=== PATIENT | male | born 1965 | race Two or more races ===

== ENCOUNTER 2021-12-29 12:47 | Emergency (ER) | payer MEDICAID ==
[2021-12-29] MEDS ORDERED: CLINDAMYCIN 600 MG/4 ML VL IM ONE (14:00)
[2021-12-29] MEDS ORDERED: cefTRIAXone SOD 1,000 MG VL IM ONE (14:00)
[2021-12-29 14:01] LABS: Basophils # (auto) 0 10 ^3/uL (0-0.2); Eosinophils # (auto) 0.1 10 ^3/uL (0-0.8); Hemoglobin 14.5 g/dL (13.5-17.5); Lymphocytes # (auto) 1.2 10 ^3/uL (0.4-5.4); Lymphocytes % (auto) 17.1 % (10.0-50.0); Monocytes # (auto) 0.5 10 ^3/uL (0-1.3); White Blood Cell 6.8 10^3/uL (4.4-10.8)
[2021-12-29 14:03] LABS: Basophils % (auto) 0.4 % (0.0-2.0); Eosinophils % (auto) 1.1 % (0.0-7.0); Hematocrit 44.6 % (41.0-53.0); Mean Corpuscular Hemoglobin 24.5 pg (28.0-32.0); Mean Corpuscular Hgb Conc. 32.4 g/dL (32.0-36.0); Mean Corpuscular Volume 75.5 fL (80.0-100.0); Monocytes % (auto) 7.6 % (0.0-12.0); Neutrophils % (auto) 73.8 % (37.0-80.0); Red Blood Cells 5.91 10^6/uL (4.5-5.90); Red Cell Distribution Width 12.7 % (11.8-14.3)
[2021-12-29 14:28] LABS: BUN/Creatinine Ratio 11.4; Calcium 9.3 mg/dL (8.5-10.1); Potassium 4.3 mmol/L (3.5-5.1)
[2021-12-29 14:31] LABS: Bilirubin, Total 0.3 mg/dL (0.2-1.0); Total Protein 8.2 g/dL (6.4-8.2)
[2021-12-29] MEDS ORDERED: CLIN300C8 PO (14:33)
[2021-12-29] MEDS ORDERED: LIDOCAINE 1% (LOCAL ANESTH.) PF 5ml SDV ONE (17:01)
[2021-12-29 17:31] VITALS: BP 146/84
== END 2021-12-29 17:34 | disposition home or self-care (01) ==
LOC: ER 12:47
DX: L03.115 Cellulitis of right lower limb (principal); E11.65 Type 2 diabetes mellitus with hyperglycemia; F17.210 Nicotine dependence, cigarettes, uncomplicated
CPT/HCPCS: 36415; 80053; 82962; 85025; 96372; 99284; J0696

== ENCOUNTER 2022-01-05 10:17 | Inpatient (IN) | payer MEDICAID ==
[~2022-01-05] VITALS: Ht 165.1 cm; Wt 77.6 kg
[~2022-01-05 10:17] MED LIST: CLIN300C8 PO
[2022-01-05 12:42] LABS: Eosinophils # (auto) 0.2 10 ^3/uL (0-0.8); Hemoglobin 13.8 g/dL (13.5-17.5); Monocytes # (auto) 0.4 10 ^3/uL (0-1.3); Neutrophils # (auto) 3.8 10 ^3/uL (1.6-8.6); Nucleated Red Blood Cells % 0.1 %; White Blood Cell 6.5 10^3/uL (4.4-10.8)
[2022-01-05 12:45] LABS: Basophils # (auto) 0.1 10 ^3/uL (0-0.2); Basophils % (auto) 0.8 % (0.0-2.0); Hematocrit 43.7 % (41.0-53.0); Lymphocytes # (auto) 2.1 10 ^3/uL (0.4-5.4); Lymphocytes % (auto) 31.8 % (10.0-50.0); Mean Corpuscular Hgb Conc. 31.5 g/dL (32.0-36.0); Mean Corpuscular Volume 76.2 fL (80.0-100.0); Monocytes % (auto) 5.8 % (0.0-12.0); Neutrophils % (auto) 58.6 % (37.0-80.0); Red Blood Cells 5.74 10^6/uL (4.5-5.90)
[2022-01-05] MEDS ORDERED: cefTRIAXone 1GM/50ML D5W 50 ML IV ONE (14:30)
[2022-01-05] MEDS ORDERED: VANCOMYCIN 1GM/250ML 250 ML IV ONE (14:30)
[2022-01-05 15:27] LABS: Albumin 4.1 g/dL (3.4-5.0); Potassium 4.4 mmol/L (3.5-5.1)
[2022-01-05 15:30] LABS: Lactic Acid w/Reflex 2.2 mmol/L (0.4-2.0)
[2022-01-05 15:31] LABS: Bilirubin, Total 0.3 mg/dL (0.2-1.0); Total Protein 7.9 g/dL (6.4-8.2)
[2022-01-05] MEDS ORDERED: SODIUM CHLORIDE 0.9% 2,000 ML IV ONE (19:00)
[2022-01-05] MEDS ORDERED: MORPHINE SULFATE INJ 2 MG/ml SYRG IV PRN ×2 (19:00)
[2022-01-05] MEDS ORDERED: NITROGLYCERIN 0.4 MG SL TAB SL PRN (19:00)
[2022-01-05] MEDS ORDERED: hydrALAZINE HCL 20 MG/ML VL IV PRN (19:00)
[2022-01-05] MEDS ORDERED: DEXTROSE (50%) 50ML SYRG IV PRN (19:15)
[2022-01-05 19:47] LABS: Cholesterol 141 mg/dL (< 200); HDL Cholesterol 38 mg/dL (40-59); LDL Cholesterol 96 mg/dL (< 100); Triglycerides 151 mg/dL (< 150)
[2022-01-05 20:16] LABS: Lactic Acid w/Reflex 2.3 mmol/L (0.4-2.0)
[2022-01-05] MEDS: InsuLIN REG 1unit/0.01ml Soln (100units/ml) SC SCH (21:52)
[2022-01-05] MEDS: ACCU-CHEK COMFORT CURVE STRIP VI SCH (21:52)
[2022-01-05] MEDS: CLINDAMYCIN 600MG IV 50 ML IV SCH (22:19)
[2022-01-06] VITALS (7 sets, daily range): BP systolic 137–150; BP diastolic 77–81
[2022-01-06] MEDS: CLINDAMYCIN 600MG IV 50 ML IV SCH ×3 (06:02→21:44)
[2022-01-06 06:22] LABS: Basophils # (auto) 0 10 ^3/uL (0-0.2); Eosinophils # (auto) 0.2 10 ^3/uL (0-0.8); Monocytes # (auto) 0.3 10 ^3/uL (0-1.3)
[2022-01-06 06:25] LABS: Basophils % (auto) 0.8 % (0.0-2.0); Eosinophils % (auto) 3.9 % (0.0-7.0); Hematocrit 40.8 % (41.0-53.0); Hemoglobin 12.9 g/dL (13.5-17.5); Lymphocytes # (auto) 2.4 10 ^3/uL (0.4-5.4); Lymphocytes % (auto) 39.7 % (10.0-50.0); Mean Corpuscular Hemoglobin 24.4 pg (28.0-32.0); Mean Corpuscular Hgb Conc. 31.6 g/dL (32.0-36.0); Monocytes % (auto) 5.7 % (0.0-12.0); Neutrophils # (auto) 3.1 10 ^3/uL (1.6-8.6); Neutrophils % (auto) 49.9 % (37.0-80.0); Red Cell Distribution Width 12.8 % (11.8-14.3); White Blood Cell 6.2 10^3/uL (4.4-10.8)
[2022-01-06] MEDS: InsuLIN REG 1unit/0.01ml Soln (100units/ml) SC SCH ×4 (06:26→21:54)
[2022-01-06] MEDS: ACCU-CHEK COMFORT CURVE STRIP VI SCH ×4 (06:26→21:46)
[2022-01-06 06:38] LABS: Albumin 3.4 g/dL (3.4-5.0); Calcium 8.6 mg/dL (8.5-10.1); Potassium 4.1 mmol/L (3.5-5.1)
[2022-01-06 06:45] LABS: BUN/Creatinine Ratio 16.8; Bilirubin, Total 0.3 mg/dL (0.2-1.0); Total Protein 6.5 g/dL (6.4-8.2)
[2022-01-06] MEDS: cefTRIAXone 1GM/50ML D5W 50 ML IV SCH (09:55)
[2022-01-06] MEDS: NICOTINE 7MG/24HR TOPICAL PATCH TD SCH (09:56)
[2022-01-06] MEDS: ENOXAPARIN SOD 40 MG/0.4 ML SYRINGE SC SCH (09:56)
[2022-01-06] MEDS: ACETAMINOPHEN 325 MG TAB PO PRN (21:45)
[2022-01-07] VITALS (7 sets, daily range): BP systolic 124–133; BP diastolic 69–83
[2022-01-07] MEDS: CLINDAMYCIN 600MG IV 50 ML IV SCH ×3 (06:01→21:58)
[2022-01-07] MEDS: ACCU-CHEK COMFORT CURVE STRIP VI SCH ×4 (06:39→21:59)
[2022-01-07] MEDS: InsuLIN REG 1unit/0.01ml Soln (100units/ml) SC SCH ×4 (06:41→22:03)
[2022-01-07] MEDS: ACETAMINOPHEN 325 MG TAB PO PRN ×2 (06:48→19:59)
[2022-01-07] MEDS: cefTRIAXone 1GM/50ML D5W 50 ML IV SCH (08:59)
[2022-01-07] MEDS: NICOTINE 7MG/24HR TOPICAL PATCH TD SCH (09:35)
[2022-01-07] MEDS: ENOXAPARIN SOD 40 MG/0.4 ML SYRINGE SC SCH (09:35)
[2022-01-07 10:54] LABS: INR 1.05 (0.9-1.15); Partial Thromboplastin Time 31.3 sec (24.6-33.4)
[2022-01-08] VITALS (7 sets, daily range): BP systolic 120–136; BP diastolic 74–87
[2022-01-08] MEDS: CLINDAMYCIN 600MG IV 50 ML IV SCH ×3 (06:05→22:00)
[2022-01-08] MEDS: ACCU-CHEK COMFORT CURVE STRIP VI SCH ×4 (06:37→22:15)
[2022-01-08] MEDS: InsuLIN REG 1unit/0.01ml Soln (100units/ml) SC SCH ×4 (06:40→22:28)
[2022-01-08 06:43] LABS: Basophils # (auto) 0 10 ^3/uL (0-0.2); Basophils % (auto) 0.6 % (0.0-2.0); Eosinophils # (auto) 0.3 10 ^3/uL (0-0.8); Lymphocytes # (auto) 2.2 10 ^3/uL (0.4-5.4); Monocytes # (auto) 0.4 10 ^3/uL (0-1.3); Red Blood Cells 5.47 10^6/uL (4.5-5.90); White Blood Cell 5.6 10^3/uL (4.4-10.8)
[2022-01-08 06:45] LABS: Eosinophils % (auto) 4.8 % (0.0-7.0); Hematocrit 41.7 % (41.0-53.0); Hemoglobin 13.3 g/dL (13.5-17.5); Lymphocytes % (auto) 40.3 % (10.0-50.0); Mean Corpuscular Hemoglobin 24.3 pg (28.0-32.0); Mean Corpuscular Hgb Conc. 31.8 g/dL (32.0-36.0); Mean Corpuscular Volume 76.3 fL (80.0-100.0); Monocytes % (auto) 6.8 % (0.0-12.0); Neutrophils # (auto) 2.6 10 ^3/uL (1.6-8.6); Neutrophils % (auto) 47.5 % (37.0-80.0); Nucleated Red Blood Cells % 0.1 %; Red Cell Distribution Width 12.8 % (11.8-14.3)
[2022-01-08 06:57] LABS: INR 1.01 (0.9-1.15); Partial Thromboplastin Time 27.6 sec (24.6-33.4)
[2022-01-08 07:00] LABS: Albumin 3.5 g/dL (3.4-5.0); BUN/Creatinine Ratio 15.8; Calcium 8.3 mg/dL (8.5-10.1)
[2022-01-08 07:03] LABS: Bilirubin, Total 0.3 mg/dL (0.2-1.0)
[2022-01-08] MEDS: ENOXAPARIN SOD 40 MG/0.4 ML SYRINGE SC SCH (07:48)
[2022-01-08] MEDS: NICOTINE 7MG/24HR TOPICAL PATCH TD SCH (07:48)
[2022-01-08] MEDS: cefTRIAXone 1GM/50ML D5W 50 ML IV SCH (08:54)
[2022-01-08] MEDS ORDERED: PROPOFOL 10 MG/ML 20 ML IV ONE (10:28)
[2022-01-08] MEDS ORDERED: MIDAZOLAM HCL 2MG/2ML 2ml VIAL (1mg/ml) ONE (10:28)
[2022-01-08] MEDS ORDERED: fentaNYL CITRATE 100 MCG/2 ML VL ONE (10:28)
[2022-01-08] MEDS ORDERED: SODIUM CHLORIDE LOCK 10 ML ONE (10:28)
[2022-01-08] MEDS ORDERED: ONDANSETRON HCL 4 MG/2 ML VIAL ONE (10:28)
[2022-01-08] MEDS ORDERED: MORPHINE SULFATE 4 MG/ML SYR/VIAL IV PRN (12:00)
[2022-01-08] MEDS ORDERED: HYDROmorphone HCL 2 MG/ML VL/or syr IV PRN (12:00)
[2022-01-08] MEDS ORDERED: METOCLOPRAMIDE HCL 5MG/ml INJ 2ml VIAL IV PRN (12:00)
[2022-01-08] MEDS ORDERED: ACCU-CHEK COMFORT CURVE STRIP VI ONE (12:00)
[2022-01-08] MEDS ORDERED: LIDOCAINE 1%HCL (LOCAL ANESTH) 10 ML MDV ONE (12:14)
[2022-01-08] MEDS ORDERED: BUPIVACAINE 0.5% P/F INJ 10 ML VIAL ONE (12:14)
[2022-01-08] MEDS ORDERED: LIDOCAINE 1% (LOCAL ANESTH.) PF 5ml SDV ID ONE (16:30)
[2022-01-08] MEDS: ACETAMINOPHEN 325 MG TAB PO PRN (22:21)
[2022-01-08] MEDS: SODIUM CHLOR 0.9% PF (SALINE LOCK) 10ML VIAL/SYR IV SCH (22:22)
[2022-01-09] VITALS (8 sets, daily range): BP systolic 131–184; BP diastolic 9–87
[2022-01-09] MEDS: ACETAMINOPHEN 325 MG TAB PO PRN (04:30)
[2022-01-09] MEDS: CLINDAMYCIN 600MG IV 50 ML IV SCH ×3 (05:47→21:39)
[2022-01-09] MEDS: ACCU-CHEK COMFORT CURVE STRIP VI SCH ×4 (06:50→22:00)
[2022-01-09] MEDS: InsuLIN REG 1unit/0.01ml Soln (100units/ml) SC SCH ×4 (06:51→22:34)
[2022-01-09] MEDS: cefTRIAXone 1GM/50ML D5W 50 ML IV SCH (11:49)
[2022-01-09] MEDS: NICOTINE 7MG/24HR TOPICAL PATCH TD SCH (11:49)
[2022-01-09] MEDS: ENOXAPARIN SOD 40 MG/0.4 ML SYRINGE SC SCH (11:49)
[2022-01-09] MEDS: SODIUM CHLOR 0.9% PF (SALINE LOCK) 10ML VIAL/SYR IV SCH ×2 (11:49→21:39)
[2022-01-09] MEDS: DAKINS QUARTER STR 0.125% (NaHypochlorite) 473 ML TOPICAL SOL TOP SCH (17:24)
[2022-01-10] MEDS: ACETAMINOPHEN 325 MG TAB PO PRN ×2 (02:11→14:27)
[2022-01-10 05:00] VITALS: BP 138/90
[2022-01-10] MEDS: CLINDAMYCIN 600MG IV 50 ML IV SCH ×3 (05:34→21:41)
[2022-01-10] MEDS: InsuLIN REG 1unit/0.01ml Soln (100units/ml) SC SCH ×4 (07:00→21:58)
[2022-01-10] MEDS: ACCU-CHEK COMFORT CURVE STRIP VI SCH ×4 (07:02→21:52)
[2022-01-10 08:28] VITALS: BP 116/66
[2022-01-10 09:00] VITALS: BP 140/83
[2022-01-10] MEDS: cefTRIAXone 1GM/50ML D5W 50 ML IV SCH (10:43)
[2022-01-10] MEDS: ENOXAPARIN SOD 40 MG/0.4 ML SYRINGE SC SCH (10:44)
[2022-01-10] MEDS: SODIUM CHLOR 0.9% PF (SALINE LOCK) 10ML VIAL/SYR IV SCH ×2 (10:44→21:41)
[2022-01-10] MEDS: NICOTINE 7MG/24HR TOPICAL PATCH TD SCH (10:44)
[2022-01-10] MEDS: DAKINS QUARTER STR 0.125% (NaHypochlorite) 473 ML TOPICAL SOL TOP SCH (16:00)
[2022-01-10 17:00] VITALS: BP 133/76
[2022-01-10 20:00] VITALS: BP 149/90
[2022-01-10 21:59] VITALS: BP 149/90
[2022-01-11] MEDS: ACETAMINOPHEN 325 MG TAB PO PRN ×3 (04:22→23:42)
[2022-01-11 04:58] VITALS: BP 124/87
[2022-01-11] MEDS: CLINDAMYCIN 600MG IV 50 ML IV SCH ×3 (06:08→21:58)
[2022-01-11] MEDS: ACCU-CHEK COMFORT CURVE STRIP VI SCH ×4 (06:35→21:59)
[2022-01-11] MEDS: InsuLIN REG 1unit/0.01ml Soln (100units/ml) SC SCH ×4 (06:35→22:15)
[2022-01-11 08:00] VITALS: BP 130/85
[2022-01-11 09:00] VITALS: BP 130/85
[2022-01-11] MEDS: SODIUM CHLOR 0.9% PF (SALINE LOCK) 10ML VIAL/SYR IV SCH ×2 (10:35→21:59)
[2022-01-11] MEDS: cefTRIAXone 1GM/50ML D5W 50 ML IV SCH (10:35)
[2022-01-11] MEDS: ENOXAPARIN SOD 40 MG/0.4 ML SYRINGE SC SCH (10:36)
[2022-01-11] MEDS: NICOTINE 7MG/24HR TOPICAL PATCH TD SCH (10:36)
[2022-01-11] MEDS: DAKINS QUARTER STR 0.125% (NaHypochlorite) 473 ML TOPICAL SOL TOP SCH (10:36)
[2022-01-11 12:34] VITALS: BP 135/77
[2022-01-11 16:44] VITALS: BP 126/76
[2022-01-11 22:00] VITALS: BP 145/83
[2022-01-12 05:00] VITALS: BP 139/80
[2022-01-12] MEDS: CLINDAMYCIN 600MG IV 50 ML IV SCH ×2 (06:20→13:23)
[2022-01-12] MEDS: ACCU-CHEK COMFORT CURVE STRIP VI SCH ×3 (06:20→17:00)
[2022-01-12] MEDS: InsuLIN REG 1unit/0.01ml Soln (100units/ml) SC SCH ×3 (06:29→17:00)
[2022-01-12 07:30] VITALS: BP 139/80
[2022-01-12] MEDS: SODIUM CHLOR 0.9% PF (SALINE LOCK) 10ML VIAL/SYR IV SCH (09:28)
[2022-01-12] MEDS: ENOXAPARIN SOD 40 MG/0.4 ML SYRINGE SC SCH (09:59)
[2022-01-12] MEDS: cefTRIAXone 1GM/50ML D5W 50 ML IV SCH (09:59)
[2022-01-12] MEDS: NICOTINE 7MG/24HR TOPICAL PATCH TD SCH (09:59)
[2022-01-12] MEDS: DAKINS QUARTER STR 0.125% (NaHypochlorite) 473 ML TOPICAL SOL TOP SCH (10:00)
[2022-01-12] MEDS ORDERED: HYDR-4902 PO (10:10)
[2022-01-12] MEDS ORDERED: CIPR-173 PO (10:10)
[2022-01-12] MEDS ORDERED: METF-372 PO (11:33)
[2022-01-12 13:00] VITALS: BP 122/83
[2022-01-12 17:00] VITALS: BP 127/87
== END 2022-01-12 17:45 | disposition home or self-care (01) | DRG 344 ==
LOC: ER 10:17 → OVERFLOW 18:52 → EAST 23:00
PROVIDERS: ADMIT Registered Nurse; ATTEND Family Medicine
PROC: 02HV33Z Insertion of Infusion Device into Superior Vena Cava, Percutaneous Approach (ICD-10-PCS; 2022-01-08)
PROC: 0J9Q0ZX Drainage of Right Foot Subcutaneous Tissue and Fascia, Open Approach, Diagnostic (ICD-10-PCS; principal; 2022-01-08 12:04)
DX: E11.69 Type 2 diabetes mellitus with other specified complication (principal); M86.8X7 Other osteomyelitis, ankle and foot; R65.10 Systemic inflammatory response syndrome (SIRS) of non-infectious origin without acute organ dysfunction; E11.621 Type 2 diabetes mellitus with foot ulcer; L03.115 Cellulitis of right lower limb; L97.509 Non-pressure chronic ulcer of other part of unspecified foot with unspecified severity; L02.611 Cutaneous abscess of right foot; E66.01 Morbid (severe) obesity due to excess calories; I10 Essential (primary) hypertension; E11.65 Type 2 diabetes mellitus with hyperglycemia; Z20.822 Contact with and (suspected) exposure to COVID-19; M19.079 Primary osteoarthritis, unspecified ankle and foot; L97.519 Non-pressure chronic ulcer of other part of right foot with unspecified severity; Z79.84 Long term (current) use of oral hypoglycemic drugs; Z68.28 Body mass index [BMI] 28.0-28.9, adult; Z72.0 Tobacco use; Z71.6 Tobacco abuse counseling
CPT/HCPCS: 36415; 36569; 71045; 73700; 73718; 80053; 80061; 82962; 83036; 83605; 85025; 85610; 85730; 86141; 86850; 86900; 86901; 87040; 87070; 87075; 87205; 93925; 96361; 96365; 96367; G0378; J0696; J1815; J2001; J2250; J2405; J2704; J3490